=== PATIENT | male | born 1960 | race Caucasian/White ===

== ENCOUNTER 2016-11-23 22:03 | Emergency (ER) | payer OTHER ==
[~2016-11-23] VITALS: Ht 180.3 cm; Wt 118.2 kg
[2016-11-23 22:15] VITALS: BP 138/73; PULSE 76; RESP 16; O2SAT 96
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
[2016-11-23] MEDS ORDERED: TdaP Vaccine 0.5 mL Inj IM ONE (23:15)
[2016-11-24 00:11] VITALS: BP 131/82; PULSE 71; RESP 16; O2SAT 97
== END 2016-11-24 00:18 | disposition home or self-care (01) ==
LOC: SED 22:03
DX: S01.01XA Laceration without foreign body of scalp, initial encounter (principal); Y04.0XXA Assault by unarmed brawl or fight, initial encounter; Y93.89 Activity, other specified; Y92.89 Other specified places as the place of occurrence of the external cause; Y99.8 Other external cause status; Z23 Encounter for immunization

== ENCOUNTER 2016-11-30 16:29 | Emergency (ER) | payer OTHER ==
[~2016-11-30] VITALS: Ht 180.3 cm; Wt 118.2 kg
[2016-11-30 16:37] VITALS: BP 120/76; PULSE 82; RESP 16; O2SAT 97
== END 2016-11-30 16:54 | disposition home or self-care (01) ==
LOC: SED 16:29
DX: Z48.02 Encounter for removal of sutures (principal)